=== PATIENT | female | born 1980 | race Caucasian/White ===

== ENCOUNTER 2017-12-29 09:06 | Day surgery (SDC) | payer BC ==
[~2017-12-29] VITALS: Ht 154.9 cm; Wt 78.0 kg
[~2017-12-29 09:06] MED LIST: LEVSOD75
[2017-12-29] MEDS ORDERED: METF500 PO (09:49)
== END 2017-12-29 12:10 | disposition home or self-care (01) ==
LOC: ORSCSDS 09:06
PROVIDERS: Obstetrics & Gynecology
PROC: 0U5B8ZZ Destruction of Endometrium, Via Natural or Artificial Opening Endoscopic (ICD-10-PCS; principal; 2017-12-29 10:30)
DX: N92.1 Excessive and frequent menstruation with irregular cycle (principal); N94.6 Dysmenorrhea, unspecified; N84.0 Polyp of corpus uteri; Z87.891 Personal history of nicotine dependence; E03.9 Hypothyroidism, unspecified; Z79.899 Other long term (current) drug therapy
CPT/HCPCS: 82947; 88305; J0690; J1100; J1885; J2250; J2405; J3010; J7120

== ENCOUNTER → 2021-11-01 | Outpatient (CLI) | payer BC ==
[~2021-11-01] MED LIST changes: +METF500 PO
== END | disposition home or self-care (01) ==
LOC: LAB SHORT 10:47
DX: J02.9 Acute pharyngitis, unspecified (principal)
CPT/HCPCS: 87081

== ENCOUNTER → 2023-09-20 | Outpatient (CLI) | payer OTHER | LOC: LAB 16:19 → LAB SHORT 16:19 | DX: N39.0 Urinary tract infection, site not specified (principal) | CPT/HCPCS: 87077; 87086; 87186 ==